=== PATIENT | female | born 1960 ===

== ENCOUNTER 2021-09-05 11:59 | Inpatient (IN) ==
[2021-09-05] MEDS ORDERED: SODIUM CHLORIDE 0.9% 1,000 ML IV STA (12:46)
[2021-09-05 13:12] LABS: Basophils % 0.3 % (0.0-0.8); Eosinophils % 0.1 % (0.00-10.9); Hemoglobin 14.5 GM/DL (12.0-16.0); Immature Granulocytes % 0.4 %; Immature Granulocytes Absolute 0.04 #; Lymphocytes # 1.1 10*3/uL (1.4-4.0); Lymphocytes % 10.2 % (21.3-54.2); Mean Corpuscular HGB Conc 34.5 GM/DL (32-36); Mean Corpuscular Volume 85.4 FL (87-102); Mean Platelet Volume 9.1 FL (9.6-12.0); Monocytes # 0.8 10*3/uL (0.11-0.8); Monocytes % 6.8 % (1.7-12.7); Neutrophils % 82.2 % (38.7-73.9); Platelet Count 276 T/CUMM (130-400); Red Blood Count 4.92 MC/CUMM (3.8-5.5); Red Cell Distribution Width 13.9 % (9.3-17.3)
[2021-09-05] MEDS ORDERED: ONDANSETRON 4 MG/2 ML VIAL IV PRN (13:29)
[2021-09-05] MEDS ORDERED: ALBUTEROL/IPRATROPIUM 3 ML NEB RESP TX PRN (13:29)
[2021-09-05] MEDS ORDERED: KETOROLAC 15 MG/1 ML VIAL IV PRN (13:29)
[2021-09-05 13:35] LABS: Albumin 3.3 G/DL (3.4-5.0); Bilirubin,Total 1.1 MG/DL (0.20-1.00); Calcium 8.4 MG/DL (8.5-10.1); Osmolality,Calculated 276.7 MOS/KG (273-304); Potassium 3.4 MMOL/L (3.5-5.1); Total Protein 7.4 G/DL (6.4-8.2)
[2021-09-05] MEDS ORDERED: SUCCINYLCHOLINE 200 MG/10 ML VIAL ONE (13:43)
[2021-09-05] MEDS ORDERED: BUPIVACAINE MPF 0.25% 10 ML VIAL ONE (13:44)
[2021-09-05] MEDS ORDERED: LIDOCAINE 1%/EPI INJ 20 ML VIAL ONE (13:44)
[2021-09-05] MEDS ORDERED: TISSUE ADHESIVE 1 EACH APPLICATOR TOP ONE (13:44)
[2021-09-05] MEDS ORDERED: LIDOCAINE 2% 5 ML VIAL ONE (13:48)
[2021-09-05] MEDS ORDERED: propofoL 200 MG/20 ML VIAL IV ONE (13:48)
[2021-09-05] MEDS ORDERED: fentaNYL 100 MCG/2 ML VIAL ONE (13:48)
[2021-09-05] MEDS ORDERED: MIDAZOLAM 2 MG/2 ML VIAL ONE (13:48)
[2021-09-05] MEDS ORDERED: ROCURONIUM 50 MG/5 ML VIAL IV ONE (13:49)
[2021-09-05] MEDS ORDERED: PHENYLEPHRINE 1 MG/10 ML SYRINGE IV ONE (14:41)
[2021-09-05] MEDS ORDERED: SEVOFLURANE 1 UNIT/15 MINUTE INH ONE ×4 (14:42→15:18)
[2021-09-05] MEDS ORDERED: SUGAMMADEX 200 MG/2 ML VIAL IV ONE (14:46)
[2021-09-05] MEDS ORDERED: LACTATED RINGERS 1,000 ML IV ONE (14:48)
[2021-09-05] MEDS ORDERED: GLUCAGON 1 MG VIAL IM PRN (15:05)
[2021-09-05] MEDS ORDERED: DEXTROSE 10% 250 ML BAG IV PRN (15:10)
[2021-09-05] MEDS ORDERED: NEOSTIGMINE 10 MG/10 ML VIAL ONE (15:19)
[2021-09-05] MEDS ORDERED: GLYCOPYRROLATE 0.4 MG/2 ML VIAL ONE (15:19)
[2021-09-05] MEDS: GABAPENTIN 100 MG CAPSULE PO SCH ×2 (16:54→20:41)
[2021-09-05] MEDS: LACTATED RINGERS 1,000 ML IV SCH ×2 (16:59→22:56)
[2021-09-05] MEDS: INSULIN REGULAR 100 UNIT/ML SUBCUT SCH ×2 (18:10→20:51)
[2021-09-05] MEDS: FLUTICASONE/SALMETEROL 250-50 DISKUS 14 DOSE INH SCH (20:46)
[2021-09-05] MEDS: ACETAMINOPHEN 325 MG TABLET PO PRN (20:46)
[2021-09-05] MEDS: INSULIN GLARGINE 100 UNIT/ML SUBCUT SCH (20:46)
[2021-09-05] MEDS ORDERED: SIMVASTATIN 10 MG TABLET PO SCH (21:00)
[2021-09-05] MEDS ORDERED: ESCITALOPRAM 10 MG TABLET PO SCH (21:00)
[2021-09-06] MEDS: LACTATED RINGERS 1,000 ML IV SCH ×2 (00:07→06:32)
[2021-09-06] MEDS ORDERED: LEVOTHYROXINE 137 MCG TABLET PO SCH (06:30)
[2021-09-06] MEDS: INSULIN REGULAR 100 UNIT/ML SUBCUT SCH ×3 (08:01→11:51)
[2021-09-06] MEDS: INSULIN GLARGINE 100 UNIT/ML SUBCUT SCH (08:50)
[2021-09-06] MEDS: GABAPENTIN 100 MG CAPSULE PO SCH (08:51)
[2021-09-06] MEDS ORDERED: hydroCHLOROthiazide 25 MG TABLET PO SCH (09:00)
[2021-09-06] MEDS ORDERED: PANTOPRAZOLE 40 MG TABLET PO SCH (09:00)
[2021-09-06] MEDS ORDERED: lisinopriL 20 MG TABLET PO SCH (09:00)
[2021-09-06] MEDS ORDERED: amLODIPine 5 MG TABLET PO SCH (09:00)
[2021-09-06] MEDS ORDERED: FLUTICASONE 50 MCG NASAL SPRAY 16 GM BOTTLE BOTH NARES SCH (09:00)
[2021-09-06] MEDS ORDERED: MONTELUKAST 10 MG TABLET PO SCH (09:00)
[2021-09-06] MEDS ORDERED: POTASSIUM CHLORIDE 10 MEQ TABLET PO SCH (09:00)
[2021-09-06] MEDS: FLUTICASONE/SALMETEROL 250-50 DISKUS 14 DOSE INH SCH (09:01)
[2021-09-06] MEDS: ACETAMINOPHEN 325 MG TABLET PO PRN (09:02)
[2021-09-06 11:32] VITALS: BP 102/56
== END 2021-09-06 13:15 | disposition home or self-care (01) | DRG 353 ==
LOC: N.ED 11:59 → N.EDINP 13:29 → N.3E 13:54
PROVIDERS: ADMIT Surgery; ATTEND Surgery

== ENCOUNTER 2021-09-07 13:57 | Inpatient (IN) ==
[2021-09-07] MEDS ORDERED: ONDANSETRON 4 MG/2 ML VIAL IV PRN (17:18)
[2021-09-07] MEDS ORDERED: PROMETHAZINE 25 MG/1 ML VIAL IM PRN (17:18)
[2021-09-07] MEDS ORDERED: HYDROmorphone 1 MG/1 ML SYRINGE IV PRN (17:18)
[2021-09-07] MEDS: KETOROLAC 15 MG/1 ML VIAL IV SCH (18:22)
[2021-09-07] MEDS: LACTATED RINGERS 1,000 ML IV SCH (18:22)
[2021-09-07] MEDS ORDERED: LIDOCAINE 5% PATCH TRANSDERM PRN (20:02)
[2021-09-07] MEDS ORDERED: NON-FORMULARY MEDICATION (Emollient Combination No.92 [Lubriderm Daily Moisture] Lotion) TOP PRN (20:02)
[2021-09-07] MEDS ORDERED: ACETAMINOPHEN 325 MG TABLET PO PRN (20:02)
[2021-09-07 20:38] LABS: Basophils % 0.2 % (0.0-0.8); Eosinophils # 0.2 10*3/uL (0.0-0.87); Eosinophils % 2.2 % (0.00-10.9); Hematocrit 35.7 VOL% (35.7-47.0); Hemoglobin 12.2 GM/DL (12.0-16.0); Immature Granulocytes % 0.5 %; Immature Granulocytes Absolute 0.04 #; Lymphocytes # 1.9 10*3/uL (1.4-4.0); Lymphocytes % 22.9 % (21.3-54.2); Mean Corpuscular HGB Conc 34.2 GM/DL (32-36); Mean Platelet Volume 9.6 FL (9.6-12.0); Monocytes # 0.9 10*3/uL (0.11-0.8); Monocytes % 11.1 % (1.7-12.7); Neutrophils % 63.1 % (38.7-73.9); Platelet Count 230 T/CUMM (130-400); Red Blood Count 4.15 MC/CUMM (3.8-5.5); Red Cell Distribution Width 14.1 % (9.3-17.3); White Blood Count 8.1 T/CUMM (4-12)
[2021-09-07] MEDS: SIMVASTATIN 10 MG TABLET PO SCH (20:55)
[2021-09-07] MEDS: GABAPENTIN 100 MG CAPSULE PO SCH (20:55)
[2021-09-07] MEDS: APIXABAN 5 MG TABLET PO SCH (20:55)
[2021-09-07] MEDS: ESCITALOPRAM 10 MG TABLET PO SCH (20:56)
[2021-09-07 21:02] LABS: Calcium 8.4 MG/DL (8.5-10.1); Osmolality,Calculated 282.1 MOS/KG (273-304); Potassium 2.8 MMOL/L (3.5-5.1)
[2021-09-08] MEDS: KETOROLAC 15 MG/1 ML VIAL IV SCH ×4 (00:48→16:47)
[2021-09-08] MEDS: LACTATED RINGERS 1,000 ML IV SCH ×2 (00:56→16:06)
[2021-09-08] MEDS: LEVOTHYROXINE 137 MCG TABLET PO SCH (05:54)
[2021-09-08] MEDS: FLUTICASONE/SALMETEROL 250-50 DISKUS 14 DOSE INH SCH ×3 (05:55→21:21)
[2021-09-08] MEDS ORDERED: MAGNESIUM SULF RIDER 4 GM/100 ML PREMIX IV PRN (06:27)
[2021-09-08] MEDS ORDERED: MAGNESIUM SULF RIDER 2 GM/50 ML PREMIX IV PRN (06:27)
[2021-09-08] MEDS ORDERED: POTASSIUM CHLORIDE RIDER 10 MEQ/100 ML PREMIX IV PRN (06:27)
[2021-09-08 06:29] LABS: Basophils % 0.3 % (0.0-0.8); Eosinophils # 0.2 10*3/uL (0.0-0.87); Eosinophils % 3.6 % (0.00-10.9); Hematocrit 35.1 VOL% (35.7-47.0); Hemoglobin 11.8 GM/DL (12.0-16.0); Immature Granulocytes % 0.5 %; Immature Granulocytes Absolute 0.03 #; Lymphocytes # 1.6 10*3/uL (1.4-4.0); Lymphocytes % 26.3 % (21.3-54.2); Mean Corpuscular HGB Conc 33.6 GM/DL (32-36); Mean Corpuscular Volume 86.2 FL (87-102); Mean Platelet Volume 10.1 FL (9.6-12.0); Monocytes # 0.6 10*3/uL (0.11-0.8); Monocytes % 10.5 % (1.7-12.7); Neutrophils % 58.8 % (38.7-73.9); Platelet Count 232 T/CUMM (130-400); Red Blood Count 4.07 MC/CUMM (3.8-5.5); Red Cell Distribution Width 14.3 % (9.3-17.3); White Blood Count 6.1 T/CUMM (4-12)
[2021-09-08 06:58] LABS: Calcium 8.7 MG/DL (8.5-10.1); Potassium 2.7 MMOL/L (3.5-5.1)
[2021-09-08] MEDS: GABAPENTIN 100 MG CAPSULE PO SCH ×3 (08:25→21:21)
[2021-09-08] MEDS: MONTELUKAST 10 MG TABLET PO SCH (08:25)
[2021-09-08] MEDS: PANTOPRAZOLE 40 MG TABLET PO SCH (08:25)
[2021-09-08] MEDS: amLODIPine 5 MG TABLET PO SCH (08:25)
[2021-09-08] MEDS: FLUTICASONE 50 MCG NASAL SPRAY 16 GM BOTTLE BOTH NARES SCH (08:25)
[2021-09-08] MEDS ORDERED: ENOXAPARIN 40 MG/0.4 ML SYRINGE SUBCUT SCH (08:30)
[2021-09-08] MEDS: POTASSIUM CHLORIDE 10 MEQ TABLET PO SCH (09:29)
[2021-09-08] MEDS: APIXABAN 5 MG TABLET PO SCH ×2 (09:49→21:21)
[2021-09-08] MEDS: POTASSIUM CHLORIDE 20 MEQ TABLET PO PRN ×4 (09:49→15:48)
[2021-09-08 15:18] LABS: Calcium 8.7 MG/DL (8.5-10.1); Osmolality,Calculated 282.3 MOS/KG (273-304); Potassium 3.3 MMOL/L (3.5-5.1)
[2021-09-08] MEDS: SIMVASTATIN 10 MG TABLET PO SCH (21:21)
[2021-09-08] MEDS: ESCITALOPRAM 10 MG TABLET PO SCH (21:21)
[2021-09-09] MEDS: KETOROLAC 15 MG/1 ML VIAL IV SCH ×3 (00:18→10:51)
[2021-09-09] MEDS: LACTATED RINGERS 1,000 ML IV SCH ×2 (00:18→10:28)
[2021-09-09] MEDS: POTASSIUM CHLORIDE 20 MEQ TABLET PO PRN (04:29)
[2021-09-09] MEDS: LEVOTHYROXINE 137 MCG TABLET PO SCH (05:31)
[2021-09-09 05:54] LABS: Basophils % 0.4 % (0.0-0.8); Eosinophils # 0.2 10*3/uL (0.0-0.87); Eosinophils % 4.6 % (0.00-10.9); Hemoglobin 10.7 GM/DL (12.0-16.0); Immature Granulocytes % 0.6 %; Immature Granulocytes Absolute 0.03 #; Lymphocytes # 1.6 10*3/uL (1.4-4.0); Lymphocytes % 32.4 % (21.3-54.2); Mean Corpuscular HGB Conc 32.4 GM/DL (32-36); Mean Corpuscular Volume 88.7 FL (87-102); Mean Platelet Volume 9.9 FL (9.6-12.0); Monocytes # 0.5 10*3/uL (0.11-0.8); Monocytes % 10.2 % (1.7-12.7); Neutrophils % 51.8 % (38.7-73.9); Platelet Count 244 T/CUMM (130-400); Red Blood Count 3.72 MC/CUMM (3.8-5.5); Red Cell Distribution Width 14.1 % (9.3-17.3); White Blood Count 4.8 T/CUMM (4-12)
[2021-09-09 06:12] LABS: Calcium 8.7 MG/DL (8.5-10.1); Potassium 3.6 MMOL/L (3.5-5.1)
[2021-09-09 07:41] VITALS: BP 127/68
[2021-09-09] MEDS: PANTOPRAZOLE 40 MG TABLET PO SCH (08:06)
[2021-09-09] MEDS: APIXABAN 5 MG TABLET PO SCH (08:06)
[2021-09-09] MEDS: POTASSIUM CHLORIDE 10 MEQ TABLET PO SCH (08:06)
[2021-09-09] MEDS: FLUTICASONE 50 MCG NASAL SPRAY 16 GM BOTTLE BOTH NARES SCH (08:06)
[2021-09-09] MEDS: amLODIPine 5 MG TABLET PO SCH (08:06)
[2021-09-09] MEDS: MONTELUKAST 10 MG TABLET PO SCH (08:06)
[2021-09-09] MEDS: FLUTICASONE/SALMETEROL 250-50 DISKUS 14 DOSE INH SCH (08:06)
[2021-09-09] MEDS: GABAPENTIN 100 MG CAPSULE PO SCH (08:06)
[2021-09-09] MEDS ORDERED: ERGOCALCIFEROL 50,000 UNIT CAPSULE PO SCH (09:00)
== END 2021-09-09 12:45 | disposition home or self-care (01) | DRG 394 ==
LOC: N.3E 16:45
PROVIDERS: ADMIT Surgery; ATTEND Surgery